=== PATIENT | male | born 1995 | race Caucasian/White ===

== ENCOUNTER 2019-08-21 20:37 | Emergency (ER) | payer BC ==
[2019-08-21 20:54] VITALS: BP 128/77
--- NOTE | 2019-08-21 21:24 | ED ---
Upper Extremity Pain - HPI Summary HPI Summary: 24 yr old male with the complaint of left wrist pain. Onset prior to arrival when hit with a hockey puck in the wrist. No other complaints. Pain is mild. He has no restriction on range of motion. - History of Current Complaint Chief Complaint: UCUpperExtremity Stated Complaint: LEFT WRIST INJURY Time Seen by Provider: 08/21/19 20:55 - Allergies/Home Medications Allergies/Adverse Reactions: Allergies Allergy/AdvReac Type Severity Reaction Status Date / Time No Known Allergies Allergy Verified 08/21/19 20:46 Home Medications: Home Medications NK [No Home Medications Reported] 08/21/19 [History Confirmed 08/21/19] PMH/Surg Hx/FS Hx/Imm Hx - Surgical History Surgery Procedure, Year, and Place: appy 2012; hook of hamate in right hand 2012 Infectious Disease History: No Infectious Disease History: Denies: Traveled Outside the [place] in Last 30 Days - Family History Known Family History: Positive: None - Social History Alcohol Use: Occasionally Substance Use Type: Reports: Excessive Caffeine Smoking Status (MU): Never Smoked Tobacco Review of Systems Constitutional: Negative Positive: Other - wrist pain All Other Systems Reviewed And Are Negative: Yes Physical Exam Triage Information Reviewed: Yes Vital Signs On Initial Exam: Initial Vitals Temp Pulse Resp BP Pulse Ox 100 F 58 12 128/77 100 08/21/19 20:48 08/21/19 20:48 08/21/19 20:48 08/21/19 20:48 08/21/19 20:48 Vital Signs Reviewed: Yes Appearance: Positive: Well-Appearing, No Pain Distress Skin: Positive: Warm, Skin Color Reflects Adequate Perfusion Head/Face: Positive: Normal Head/Face Inspection Eyes: Positive: EOMI ENT: Positive: Normal ENT inspection Neck: Positive: Nontender Respiratory/Lung Sounds: Positive: Clear to Auscultation Cardiovascular: Positive: Pulses are Symmetrical in both Upper and Lower Extremities Abdomen Description: Negative: Distended Musculoskeletal: Positive: Other - left wrist mild STS and tenderness over the distal radius. Normal range of motion. No deformity. Neurological: Positive: Sensory/Motor Intact, Alert, Oriented to Person Place, Time, CN Intact II-III Psychiatric: Positive: Normal Diagnostics - Vital Signs Vital Signs Temp Pulse Resp BP Pulse Ox 08/21/19 20:48 100 F 58 12 128/77 100 - Laboratory Lab Statement: Any lab studies that have been ordered have been reviewed, and results considered in the medical decision making process. - Radiology left wrist Radiology Interpretation Completed By: ED Physician - nad Course/Dx - Course Course Of Treatment: contusion left wrist. FU with PMD - Diagnoses Provider Diagnoses: Contusion of left wrist Discharge ED - Sign-Out/Discharge Documenting (check all that apply): Patient Departure All imaging exams completed and their final reports reviewed: No Studies - Discharge Plan Condition: Good Disposition: HOME Patient Education Materials: Contusion in Adults (ED) Referrals: No Primary Care Phys,NOPCP [Primary Care Provider] - 2 Days Jamel Velasco MD [Medical Doctor] - - Billing Disposition and Condition Condition: GOOD Disposition: Home
== END 2019-08-21 21:30 | disposition home or self-care (01) ==
LOC: UCCORT 20:37
DX: S60.212A Contusion of left wrist, initial encounter (principal); W21.89XA Striking against or struck by other sports equipment, initial encounter; Y92.9 Unspecified place or not applicable
CPT/HCPCS: 99201; G0463